=== PATIENT | male | born 1980 | race Caucasian/White ===

== ENCOUNTER 2016-11-05 16:40 | Emergency (ER) | payer OTHER ==
--- NOTE | 2016-11-05 16:57 | PDOC ---
Rapid Medical Evaluation Time Seen by Provider: 11/05/16 16:50 Medical Evaluation: I have performed a brief in-person evaluation of this patient. The patient presents with a chief complaint of: 36 yo M s/p spinal surgery with bleeding at the surgical site. Surgery was done on October [address] Arriaga at [facility] in [place]. Has been taking percocet for the pain to the back of his neck. He has followup appointment with surgeon tomorrow. Pertinent physical exam findings: Surgical site with dressing still intact, with blood-tinged drainage on the gauze. Noted to have swelling to the L side of neck. Will defer taking down the dressing to the main ED to avoid exposure to infection. The patient will proceed to the ED for further evaluation
[2016-11-05 16:58] VITALS: BP 160/83; PULSE 87; TEMP 97.8; BMI 35.6
[2016-11-05] MEDS ORDERED: morphine CARPU-JECT 2 MG/1 ML DISP.SYRIN IM ONE (19:46)
--- NOTE | 2016-11-05 19:54 | PDOC ---
History of Present Illness - General Chief Complaint: Wound Stated Complaint: POST OP PAIN Time Seen by Provider: 11/05/16 16:50 History Source: Patient Exam Limitations: Clinical Condition - History of Present Illness Initial Comments: 11/05/16 19:47 36yo Male patient presents to ED c/o bleeding from surgical site and pain. Patient states 11/05/2016 cervical neck fusion C3-C7 in CT with Dr. Zayas. Patient states he was seen at [facility] 2 days ago for pain management and was instructed by the ED Physician to take Percocet and Aleve (Ibuprofen). Patient reports yesterday taking a total of 16 tablets. When he woke up today, he noticed small amount of blood on dressing, which progressed to saturate the dressing. Patient called his surgeon and was instructed to go to ED for evaluation. He did however, secure an appointment for tomorrow morning at his surgeon's office in [place]. He denies fever, CP, Abd pain, n/v/d, sweating, rectal bleeding, hematuria, back pain, hemoptysis, diff swallowing or diff breathing. Patient also reports transient constipation after opioid use. Past History - Travel Traveled outside of the country in the last 30 days: No Close contact w/someone who was outside of country & ill: No - Past Medical History Allergies/Adverse Reactions: Allergies Allergy/AdvReac Type Severity Reaction Status Date / Time shellfish derived Allergy Verified 11/05/16 16:58 Home Medications: Ambulatory Orders Docusate Sodium [Colace -] 100 mg PO BID #30 capsule 11/05/16 Oxycodone HCl/Acetaminophen [Percocet 5-325 mg Tablet] 1 - 2 tab PO Q4H Prednisone 10 mg PO DAILY 11/05/16 Other medical history: denies - Psycho/Social/Smoking Cessation Hx Suicidal Ideation: No Smoking History: Current every day smoker Number of Cigarettes Smoked Daily: 10 Information on smoking cessation initiated: Yes 'Breaking Loose' booklet given: 11/05/16 Review of Systems - Review of Systems Able to Perform ROS?: Yes Is the patient limited Yakut proficient: No Constitutional: No: Fever HEENTM: No: Throat Swelling, Difficulty Swallowing Respiratory: No: Cough, Shortness of Breath, Stridor, Wheezing, Hemoptysis Cardiac (ROS): No: Chest Pain ABD/GI: Yes: Constipated. No: Diarrhea, Difficulty Swallowing, Nausea, Poor Appetite, Poor Fluid Intake, Vomiting : No: Dysuria, Hematuria Musculoskeletal: Yes: Neck Pain. No: Back Pain Integumentary: Yes: Other (Bleeding). No: Bruising, Erythema, Rash Neurological: No: Headache, Seizure Endocrine: No: Excessive Sweating All Other Systems: Reviewed and Negative *Physical Exam - Vital Signs Last Vital Signs Temp Pulse Resp BP Pulse Ox 97.8 F 87 16 160/83 97 11/05/16 16:50 11/05/16 16:50 11/05/16 16:50 11/05/16 16:50 11/05/16 16:50 - Physical Exam General Appearance: Yes: Nourished, Appropriately Dressed, Apparent Distress, Mild Distress HEENT: positive: EOMI, PHILIPPE, Normal ENT Inspection, Normal Voice, Symmetrical, Pharynx Normal. negative: Nasal Congestion, Rhinorrhea, Excessive drooling, Thrush Neck: positive: Tender (To surgical incision site to palpated), Trachea midline , Normal Thyroid, Supple, Decreased range of motion. negative: Stridor, Lymphadenopathy (R), Lymphadenopathy (L), Rigidity Respiratory/Chest: positive: Lungs Clear, Normal Breath Sounds. negative: Respiratory Distress, Labored Respiration Cardiovascular: positive: Regular Rhythm, Regular Rate Gastrointestinal/Abdominal: positive: Normal Bowel Sounds, Soft Musculoskeletal: positive: Normal Inspection Extremity: positive: Normal Capillary Refill, Normal Inspection, Normal Range of Motion Integumentary: positive: Normal Color, Dry, Warm, Swelling (Mild), Bruising ( Mild), Other (4cm horizontal surgical incision with mild swelling and bruising. No drainage, pus, foul odor, bleeding, or wound dehiscence noted.) Neurologic: positive: java j2ee lead II-XII NML intact, Fully Oriented, Alert, Normal Mood/ Affect, Normal Response, Motor Strength 5/5 Procedures - Additional Procedures Additional Procedures: other (Sterile dressing reapplied using sterile technique , non-adherent dressing and bacitracin.) *DC/Admit/Observation/Transfer Diagnosis at time of Disposition: Encounter for wound care, Acute neck pain - Discharge Dispostion Disposition: HOME Condition at time of disposition: Stable Admit: No - Prescriptions Prescriptions: Docusate Sodium [Colace -] 100 mg PO BID #30 capsule - Patient Instructions Printed Discharge Instructions: DI for Neck Pain Additional Instructions: Follow up with your surgeon tomorrow as discussed. Return to emergency department if any concerns. Print Language: JAPANESE
[2016-11-05] MEDS ORDERED: morphine CARPU-JECT 2 MG/1 ML DISP.SYRIN ONE (20:07)
== END 2016-11-05 20:13 | disposition home or self-care (01) ==
LOC: JER 16:40
PROC: 3E033NZ Introduction of Analgesics, Hypnotics, Sedatives into Peripheral Vein, Percutaneous Approach (ICD-10-PCS; principal; 2016-11-05)
DX: Z48.01 Encounter for change or removal of surgical wound dressing (principal); M54.2 Cervicalgia; F17.210 Nicotine dependence, cigarettes, uncomplicated
CPT/HCPCS: 99281-25

== ENCOUNTER 2016-11-07 11:04 | Emergency (ER) | payer OTHER ==
[2016-11-07 11:25] VITALS: BP 123/83; PULSE 81; TEMP 97.6; BMI 35.6
--- NOTE | 2016-11-07 12:12 | PDOC ---
History of Present Illness - General Chief Complaint: Wound Stated Complaint: PACKAGE/DRESSING CHANGE Time Seen by Provider: 11/07/16 11:37 History Source: Patient - History of Present Illness Associated Symptoms: denies: fever/chills, malaise, nausea/vomiting Past History - Past Medical History Allergies/Adverse Reactions: Allergies Allergy/AdvReac Type Severity Reaction Status Date / Time shellfish derived Allergy Verified 11/07/16 11:21 Home Medications: Ambulatory Orders Docusate Sodium [Colace -] 100 mg PO BID #30 capsule 11/05/16 Oxycodone HCl/Acetaminophen [Percocet 5-325 mg Tablet] 1 - 2 tab PO Q4H Prednisone 10 mg PO DAILY 11/05/16 Other medical history: none - Surgical History Abdominal Surgery: Yes (hernia) - Psycho/Social/Smoking Cessation Hx Anxiety: No Suicidal Ideation: No Smoking History: Current every day smoker Have you smoked in the past 12 months: Yes Number of Cigarettes Smoked Daily: 10 Information on smoking cessation initiated: Yes 'Breaking Loose' booklet given: 11/07/16 Hx Alcohol Use: No Drug/Substance Use Hx: No Substance Use Type: None Review of Systems - Review of Systems Constitutional: No: Chills, Fever Integumentary: No: Erythema *Physical Exam - Vital Signs Last Vital Signs Temp Pulse Resp BP Pulse Ox 97.6 F 81 18 123/83 100 11/07/16 11:21 11/07/16 11:21 11/07/16 11:21 11/07/16 11:21 11/07/16 11:21 - Physical Exam General Appearance: Yes: Appropriately Dressed. No: Apparent Distress HEENT: positive: Normal Voice Neck: positive: Supple, Other (well healing surgical incision to anterior aspect of L neck) Respiratory/Chest: negative: Respiratory Distress Integumentary: positive: Dry, Warm Neurologic: positive: Fully Oriented, Alert, Normal Mood/Affect Medical Decision Making - Medical Decision Making 11/07/16 12:14 36 yo M, s/p recent surgery for herniated disc to cspine done at [facility] 10/31, here for dressing change as he missed appt w/ his surgeon yesterday but has since rescheduled appointment for Thursday. Denies any worsening neck pain, fever or chills and feels well otherwise. Dressing change in ED and patient discharged in stable condition *DC/Admit/Observation/Transfer Diagnosis at time of Disposition: Encounter for change of dressing - Discharge Dispostion Disposition: HOME Condition at time of disposition: Good - Patient Instructions Additional Instructions: Please follow up with your surgeon
== END 2016-11-07 12:20 | disposition home or self-care (01) ==
LOC: JERFT 11:04
DX: Z48.01 Encounter for change or removal of surgical wound dressing (principal)
CPT/HCPCS: 99281-25